=== PATIENT | male | born 1965 | race Two or more races ===

== ENCOUNTER 2019-11-01 11:32 | Outpatient (CLI) | payer BC ==
[2019-11-01 13:01] LABS: BASOPHILS # (AUTO) 0.1 /CMM (0.0-0.2); BASOPHILS % (AUTO) 0.7 % (0.0-2.0); EOSINOPHILS % (AUTO) 1.4 % (0.0-6.0); HEMATOCRIT 43 % (39-51); HEMOGLOBIN 13.9 g/dL (13.5-17.5); LYMPHOCYTES # (AUTO) 2.8 /CMM (0.8-4.8); LYMPHOCYTES % (AUTO) 36.3 % (20.0-44.0); MEAN CORPUSCULAR HGB CONC 33 g/dl (31.0-36.0); MEAN CORPUSCULAR VOLUME 79 fL (80-96); MONOCYTES # (AUTO) 0.6 /CMM (0.1-1.30); MONOCYTES % (AUTO) 8.3 % (2.0-12.0); NEUTROPHILS # (AUTO) 4.2 /CMM (1.8-8.9); NEUTROPHILS % (AUTO) 53.3 % (43.0-81.0); PLATELET COUNT (AUTO) 306 /CMM (150-450); RED BLOOD CELL COUNT(AUTO) 5.36 MIL/uL (4.5-6.0); WHITE BLOOD COUNT (AUTO) 7.8 K/uL (4.3-11.0)
[2019-11-01 13:34] LABS: CHOLESTEROL 232 mg/dL (<200); HDL CHOLESTEROL 29 mg/dL (40-60); LDL 135 mg/dL (0-99); TRIGLYCERIDES 524 mg/dL (30-150)
== END 2019-11-01 23:59 | disposition home or self-care (01) ==
LOC: MRI 11:32 → LAB 23:59
PROVIDERS: ATTEND Family Medicine
DX: G89.29 Other chronic pain (principal); E78.2 Mixed hyperlipidemia; Z79.899 Other long term (current) drug therapy
CPT/HCPCS: 36415; 80061-TC; 85025-TC

== ENCOUNTER 2019-11-02 11:40 | Outpatient (CLI) | payer BC | END 2019-11-02 23:59 | disposition home or self-care (01) | LOC: MRI 11:40 | PROVIDERS: ATTEND Family Medicine | DX: M47.817 Spondylosis without myelopathy or radiculopathy, lumbosacral region (principal); M51.27 Other intervertebral disc displacement, lumbosacral region; M48.07 Spinal stenosis, lumbosacral region | CPT/HCPCS: 72148-TC ==

== ENCOUNTER → 2019-11-14 | Outpatient (CLI) | payer BC | END | disposition home or self-care (01) | LOC: MSC 10:40 | PROVIDERS: ATTEND Anesthesiology | DX: M51.26 Other intervertebral disc displacement, lumbar region (principal); M47.27 Other spondylosis with radiculopathy, lumbosacral region; M62.830 Muscle spasm of back; M40.299 Other kyphosis, site unspecified; Z79.891 Long term (current) use of opiate analgesic; Z79.1 Long term (current) use of non-steroidal anti-inflammatories (NSAID); Z79.899 Other long term (current) drug therapy ==

== ENCOUNTER → 2019-12-19 | Outpatient (CLI) | payer BC | END | disposition home or self-care (01) | LOC: MSC 09:00 | PROVIDERS: ATTEND Anesthesiology | DX: M51.26 Other intervertebral disc displacement, lumbar region (principal); M47.27 Other spondylosis with radiculopathy, lumbosacral region; M62.830 Muscle spasm of back; M40.299 Other kyphosis, site unspecified; Z79.891 Long term (current) use of opiate analgesic; Z79.1 Long term (current) use of non-steroidal anti-inflammatories (NSAID); Z79.899 Other long term (current) drug therapy ==

== ENCOUNTER 2020-01-01 14:24 | Outpatient (CLI) | payer BC ==
[2020-01-04] MEDS ORDERED: AMLO5TAB9 PO (08:49)
== END 2020-01-01 23:59 | disposition home or self-care (01) ==
LOC: LAB 14:24
PROVIDERS: ATTEND Anesthesiology
DX: Z01.812 Encounter for preprocedural laboratory examination (principal); Z20.828 Contact with and (suspected) exposure to other viral communicable diseases
CPT/HCPCS: 87426; C9803 ×2; U0003

== ENCOUNTER 2020-01-04 07:37 | Day surgery (SDC) | payer BC ==
--- NOTE | 2020-01-04 07:00 | NUR ---
ms rn received a new patient for daysurhery, awake,alert,oriented x4,very nice man,came in for injection of lower back pain,not in any form of distress, will monitor patient
--- NOTE | 2020-01-04 08:40 | NUR ---
ms rn patient got ready to surgery, all needs attended.
[2020-01-04] MEDS ORDERED: LOSA100T31 PO (08:49)
[2020-01-04] MEDS ORDERED: PANT40TA49 PO (08:49)
[2020-01-04] MEDS ORDERED: ATOR20TA PO (08:49)
[2020-01-04] MEDS ORDERED: ERGO500014 PO (08:49)
[2020-01-04] MEDS ORDERED: GABA600T12 PO (08:49)
[2020-01-04] MEDS ORDERED: AMLO-212 PO (08:49)
[2020-01-04] MEDS ORDERED: FAMO40TA7 PO (08:49)
[2020-01-04] MEDS ORDERED: CARV25TA2 PO (08:49)
[2020-01-04] MEDS ORDERED: ESCI10TA PO (08:49)
[2020-01-04] MEDS ORDERED: MAGN400T26 PO (08:49)
[2020-01-04] MEDS ORDERED: METH500T6 PO (08:49)
--- NOTE | 2020-01-04 08:55 | NUR ---
ms rn patient went don for procedure.
[2020-01-04] MEDS ORDERED: MIDAZOLAM HCL 2 MG/2ML VIAL ONE (09:14)
[2020-01-04] MEDS ORDERED: IOHEXOL 50 ML IV ONE (09:17)
[2020-01-04] MEDS ORDERED: methylPREDNISolone ACETATE 80 MG/ML VIAL ONE (09:18)
[2020-01-04] MEDS ORDERED: BUPIVACAINE 0.25% 75 MG/30 ML VIAL ONE (09:18)
--- NOTE | 2020-01-04 10:10 | NUR ---
ms rn patient came back, after procedure, awake,alert,oriented x4,s/p lower back injection, denies pain at this time.
--- NOTE | 2020-01-04 11:45 | NUR ---
ms rn social work instructions given, denies pain, patient went back to home,all needs attended.
== END 2020-01-04 19:00 | disposition home or self-care (01) ==
LOC: DS 07:37 → MED 07:42 → UNDOADMIN 07:42 → UNDODISIN 11:45 → DS 19:00
PROVIDERS: ATTEND Anesthesiology
DX: M47.16 Other spondylosis with myelopathy, lumbar region (principal); M51.06 Intervertebral disc disorders with myelopathy, lumbar region; M54.5 Low back pain
CPT/HCPCS: 64493; 64494; 64495; 72020; A6402; J1040; J1885; J2250; J3490; J7040; J7120; Q9967; G0378

== ENCOUNTER 2020-04-18 08:03 | Outpatient (CLI) | payer BC ==
[~2020-04-18 08:03] MED LIST: AMLO-212 PO; ATOR20TA PO; CARV25TA2 PO; ERGO500014 PO; ESCI10TA PO; FAMO40TA7 PO; GABA600T12 PO; LOSA100T31 PO; MAGN400T26 PO; METH-806 PO; PANT40TA49 PO
[2020-04-18 09:04] LABS: BASOPHILS % (AUTO) 0.6 % (0.0-2.0); EOSINOPHILS % (AUTO) 1.4 % (0.0-6.0); HEMATOCRIT 43 % (39-51); HEMOGLOBIN 13.9 g/dL (13.5-17.5); LYMPHOCYTES # (AUTO) 2.7 /CMM (0.8-4.8); LYMPHOCYTES % (AUTO) 32.7 % (20.0-44.0); MEAN CORPUSCULAR HGB CONC 32 g/dl (31.0-36.0); MEAN CORPUSCULAR VOLUME 79 fL (80-96); MONOCYTES # (AUTO) 0.5 /CMM (0.1-1.30); MONOCYTES % (AUTO) 5.8 % (2.0-12.0); NEUTROPHILS # (AUTO) 4.8 /CMM (1.8-8.9); NEUTROPHILS % (AUTO) 59.5 % (43.0-81.0); PLATELET COUNT (AUTO) 290 /CMM (150-450); RED BLOOD CELL COUNT(AUTO) 5.44 MIL/uL (4.5-6.0); WHITE BLOOD COUNT (AUTO) 8.1 K/uL (4.3-11.0)
[2020-04-18 09:08] LABS: BILIRUBIN,URINE NEGATIVE (NEGATIVE); COLOR,URINE YELLOW (YELLOW); LEUKOCYTE ESTERASE ,URINE NEGATIVE (NEGATIVE); NITRITE, URINE NEGATIVE (NEGATIVE); PROTEIN,URINE NEGATIVE (NEGATIVE); UGLUCOSE NEGATIVE (NEGATIVE); UROBILINOGEN,URINE 0.2 EU/dL (0.2)
[2020-04-18 09:39] LABS: ALBUMIN 4.2 g/dL (3.4-5.0); BILIRUBIN,TOTAL 0.5 mg/dL (0.2-1.0); CALCIUM, SERUM 8.9 mg/dL (8.5-10.1); CREATININE 1.2 mg/dL (0.6-1.3); POTASSIUM 4.1 mmol/L (3.5-5.1)
[2020-04-18 09:48] LABS: THYROID STIMULATING HORMONE 1.17 uIU/mL (0.358-3.74)
== END 2020-04-18 23:59 | disposition home or self-care (01) ==
LOC: LAB 08:03
PROVIDERS: ATTEND Family Medicine
DX: I10 Essential (primary) hypertension (principal); K21.9 Gastro-esophageal reflux disease without esophagitis; R77.1 Abnormality of globulin; R43.8 Other disturbances of smell and taste; Z79.899 Other long term (current) drug therapy
CPT/HCPCS: 36415; 80053-TC; 80061-TC; 82306; 84439-TC; 84443-TC; 85025-TC

== ENCOUNTER 2020-04-24 11:10 | Outpatient (CLI) | payer BC ==
[2020-04-24] MEDS ORDERED: GADOTERATE MEGLUMINE 5 MMOL/10 ML VIAL IV ONE (11:11)
== END 2020-04-24 23:59 | disposition home or self-care (01) ==
LOC: MRI 11:10
PROVIDERS: ATTEND Family Medicine
DX: R43.2 Parageusia (principal)
CPT/HCPCS: 70553; A9575

== ENCOUNTER 2020-05-09 08:11 | Outpatient (CLI) | payer BC ==
[2020-05-09] MEDS ORDERED: IOHEXOL-300 100 ML VIAL IV ONE (09:22)
[2020-05-09] MEDS ORDERED: CT SWABBABLE VALVE TRANS SET 1 EA INFUS.SET MC ONE (09:23)
[2020-05-09] MEDS ORDERED: IV NS 0.9% 250 ML IV ONE (09:23)
[2020-05-10 12:07] LABS: *SPE A/G RATIO 1.2 (0.7-1.7); *SPE ALBUMIN 3.9 g/dL (2.9-4.4); *SPE ALPHA-1-GLOBULIN 0.2 g/dL (0.0-0.4); *SPE ALPHA-2-GLOBULIN 0.7 g/dL (0.4-1.0); *SPE BETA GLOBULIN 1.3 g/dL (0.7-1.3); *SPE GLOBULIN, TOTAL 3.3 g/dL (2.2-3.9); *SPE M-SPIKE Not Observed g/dL (Not Observed); *SPEGAMMA GLOBULIN 1.2 g/dL (0.4-1.8)
== END 2020-05-09 23:59 | disposition home or self-care (01) ==
LOC: CT 08:11
PROVIDERS: ATTEND Family Medicine
DX: K82.4 Cholesterolosis of gallbladder (principal); R77.1 Abnormality of globulin
CPT/HCPCS: 74170; 82565; 82784 ×3; 84155 ×2; 84156; 84165 ×2; 84166; 84520; 86334; 86335; J7050; Q9967

== ENCOUNTER 2020-07-02 08:54 | Outpatient (CLI) | payer BC | END 2020-07-02 23:59 | disposition home or self-care (01) | LOC: MSC 08:54 | PROVIDERS: ATTEND Anesthesiology | DX: M47.27 Other spondylosis with radiculopathy, lumbosacral region (principal); M51.26 Other intervertebral disc displacement, lumbar region; M62.830 Muscle spasm of back; M40.299 Other kyphosis, site unspecified; Z88.6 Allergy status to analgesic agent; Z79.1 Long term (current) use of non-steroidal anti-inflammatories (NSAID); Z79.891 Long term (current) use of opiate analgesic; Z79.899 Other long term (current) drug therapy; Z82.49 Family history of ischemic heart disease and other diseases of the circulatory system; Z98.890 Other specified postprocedural states ==

== ENCOUNTER 2021-08-05 10:24 | Outpatient (CLI) | payer OTHER ==
[~2021-08-05 10:24] MED LIST changes: -ERGO500014 PO; +ERGO500093 PO; -METH-806 PO; +METH500T6 PO
== END 2021-08-05 23:59 | disposition home or self-care (01) ==
LOC: RAD 10:24
PROVIDERS: ATTEND Family Medicine
DX: M19.012 Primary osteoarthritis, left shoulder (principal); M25.561 Pain in right knee; M25.512 Pain in left shoulder
CPT/HCPCS: 73030-TC; 73562

== ENCOUNTER 2021-09-03 10:52 | Outpatient (CLI) | payer OTHER | END 2021-09-03 23:59 | disposition home or self-care (01) | LOC: MRI 10:52 | PROVIDERS: ATTEND Family Medicine | DX: M75.122 Complete rotator cuff tear or rupture of left shoulder, not specified as traumatic (principal); M19.012 Primary osteoarthritis, left shoulder; M75.82 Other shoulder lesions, left shoulder; M65.812 Other synovitis and tenosynovitis, left shoulder; M25.812 Other specified joint disorders, left shoulder | CPT/HCPCS: 73221-TC ==